=== PATIENT | male | born 1970 | race Caucasian/White ===

== ENCOUNTER 2017-09-11 18:45 | Inpatient (IN) | payer OTHER ==
[~2017-09-11] VITALS: Ht 175.3 cm; Wt 100.0 kg
[2017-09-11] MEDS ORDERED: ONDANSETRON 2MG/ML, 2ML IVPush PRN ×2 (19:30→22:00)
[2017-09-11] MEDS ORDERED: SODIUM CHLORIDE FLUSH 10ML SYR IVF ONE (19:30)
[2017-09-11] MEDS ORDERED: MORPHINE SULFATE 4 MG/ML, 1ML IVPush PRN (19:30)
[2017-09-11 19:36] LABS: ALBUMIN 4.1 g/dL (3.4-5.0); ANION GAP 8 mmol/L (5-15); CALCIUM 8.6 mg/dL (8.5-10.1); CHLORIDE 109 mmol/L (98-107); CREATININE 0.93 mg/dL (0.7-1.3)
[2017-09-11 19:40] LABS: MICROSCOPIC NOT IND
[2017-09-11 19:45] LABS: BASOPHILS # (AUTO) 0.02 x10^3/uL (0-0.1); BASOPHILS % (AUTO) 0 % (0-1); EOSINOPHILS # (AUTO) 0.05 x10^3/uL (0-0.4); EOSINOPHILS % (AUTO) 1 % (1-7); LYMPHOCYTES % (AUTO) 17 % (22-44); MD NO; MEAN CORPUSCULAR HEMOGLOBIN 29.6 pg (27.5-34.5); MEAN CORPUSCULAR HGB CONC 33.5 g/dL (33.2-36.2); MEAN CORPUSCULAR VOLUME 88.2 fL (81-97); MEAN PLATELET VOLUME 9.1 fL (7.4-10.4); MONOCYTES # (AUTO) 0.88 x10^3/uL (0.2-0.8); MONOCYTES % (AUTO) 8 % (2-9); NEUTROPHILS # (AUTO) 8.38 x10^3/uL (1.8-6.8); NEUTROPHILS % (AUTO) 75 % (42-75); PLATELET COUNT 232 x10^3/uL (130-400); RED BLOOD COUNT 5.02 x10^6/uL (4.38-5.82); RED CELL DISTRIBUTION WIDTH 14.3 % (9.4-14.8)
[2017-09-11 19:54] LABS: CULTURE INDICATED? NO
[2017-09-11] MEDS ORDERED: OMNIPAQUE 350 MG/ML, 100ML BOTTLE ONE (20:01)
[2017-09-11] MEDS ORDERED: SODIUM CHLORIDE 0.9%, 500ML IVBOLUS ONE (21:00)
[2017-09-11] MEDS ORDERED: CEFOTETAN PMX 2GM/50ML 50 ML IV ONE (21:00)
[2017-09-11] MEDS ORDERED: EPINEPHRINE 1 MG/ML, 1ML ONE (21:08)
[2017-09-11] MEDS ORDERED: BUPIVACAINE/PF 0.5% ONE (21:08)
[2017-09-11] MEDS ORDERED: FENTANYL PF 250 MCG/5ML ONE (21:21)
[2017-09-11] MEDS ORDERED: MIDAZOLAM 1 MG/ML, 2ML ONE (21:21)
[2017-09-11] MEDS ORDERED: ONDANSETRON 2MG/ML, 2ML ONE (21:34)
[2017-09-11] MEDS ORDERED: ROCURONIUM 10 MG/ML,10ML ONE (21:34)
[2017-09-11] MEDS ORDERED: DEXAMETHASONE 4 MG/ML, 5ML ONE (21:34)
[2017-09-11] MEDS ORDERED: PROPOFOL 10 MG/ML, 20ML ONE (21:34)
[2017-09-11] MEDS ORDERED: KETOROLAC 30 MG/1 ML ONE (21:34)
[2017-09-11] MEDS ORDERED: CEFOTETAN 2 GM ONE (21:34)
[2017-09-11] MEDS ORDERED: morphine SULFATE 10 MG/ML, 1ML IV PRN (22:00)
[2017-09-11] MEDS ORDERED: PROMETHAZINE 12.5 MG SUPP PR PRN (22:00)
[2017-09-11] MEDS ORDERED: MEPERIDINE/PF 25MG/0.5ML IVPush PRN (22:00)
[2017-09-11] MEDS ORDERED: OXYcodone 5 MG/5 ML ORAL.SOL UDC PO PRN (22:00)
[2017-09-11] MEDS ORDERED: ACETAMINOPHEN 325 MG TABLET PO PRN (22:00)
[2017-09-11] MEDS ORDERED: FENTANYL PF 100 MCG/2ML IV PRN (22:00)
[2017-09-11] MEDS ORDERED: KETOROLAC 30 MG/1 ML IV PRN (22:00)
[2017-09-11] MEDS ORDERED: BUPIVACAINE/PF 0.5% INFIL ONE (22:02)
[2017-09-11] MEDS ORDERED: EPINEPHRINE 1 MG/ML, 1ML INFIL ONE (22:02)
[2017-09-11] MEDS ORDERED: FENTANYL PF 100 MCG/2ML ONE (22:29)
[2017-09-11] MEDS ORDERED: OXYcodone 5 MG/5 ML ORAL.SOL UDC ONE (22:59)
[2017-09-12 00:23] VITALS: BP 128/79
[2017-09-12] MEDS ORDERED: CEFOTETAN PMX 2GM/50ML 50 ML IV SCH (02:00)
[2017-09-12] MEDS ORDERED: ENALAPRILAT 1.25 MG/ML, 2ML IV PRN (02:00)
[2017-09-12] MEDS ORDERED: D5%-0.9% NACL+KCL 20MEQ 1,000 ML IV SCH (02:00)
[2017-09-12] MEDS ORDERED: MORPHINE SULFATE 4 MG/ML, 1ML IV PRN (02:00)
[2017-09-12] MEDS ORDERED: ONDANSETRON 2MG/ML, 2ML IV PRN (02:00)
[2017-09-12 03:58] VITALS: BP 137/85
[2017-09-12 07:47] VITALS: BP 122/68
[2017-09-12] MEDS ORDERED: OXYC-302 PO (08:39)
[2017-09-12] MEDS ORDERED: OXYcodone/APAP 5/325MG TABLET PO PRN (09:00)
== END 2017-09-12 09:25 | disposition home or self-care (01) | DRG 343 ==
LOC: OR 20:56 → 4EST 22:58 → 4NOR 23:35 → DCLOUNGE 09-12 09:20
PROVIDERS: ADMIT Surgery; ATTEND Surgery
PROC: 0DTJ4ZZ Resection of Appendix, Percutaneous Endoscopic Approach (ICD-10-PCS; principal; 2017-09-11 21:15)
DX: K35.80 Unspecified acute appendicitis (principal); K66.8 Other specified disorders of peritoneum; E66.9 Obesity, unspecified; Z88.0 Allergy status to penicillin; Z68.32 Body mass index [BMI] 32.0-32.9, adult
CPT/HCPCS: 36415; 74177; 80048; 81003; 82040; 85025; 88304; 99285; J0171; J1100; J1885; J2250; J2405; J2704; J3010; J3490; Q9967; J3480; S0074